=== PATIENT | female | born 1960 | race Two or more races ===

== ENCOUNTER 2017-01-18 01:44 | Inpatient (IN) | payer BC ==
[~2017-01-18] VITALS: Ht 162.6 cm; Wt 88.2 kg
--- NOTE | ~2017-01-18 | ER ---
PATIENT'S NAME: ALIA VALLES [facility] AGE: 56 Y [address] ROOM: [place] [address] LOCATION: GPCU ADMIT DATE: 01/18/2017 ER/Outpatient Report DISCHARGE DATE: FAMILY PHYSICIAN: PHYSICIAN, NO ATTENDING PHYSICIAN: ANABEL LANE TIME OF ARRIVAL: 0144. TIME SEEN: 0145. IDENTIFICATION: A 56-year-old female. CHIEF COMPLAINT: Chest pain. HISTORY OF PRESENT ILLNESS: The patient is a 56-year-old female, who initially stated she developed chest pain around 8:00 p.m., but actually she had chest pain throughout most of the afternoon. It increased in severity about 8:00 p.m. She said earlier this afternoon, she felt like it was indigestion, but it went away and then came back. She took a bath and that increased in severity around 8:00 p.m. and then again at 01:00 a.m. The patient has never had pain like this before. She does have diaphoresis and nausea associated with this. Her pain is lower substernal chest pain with no radiation. She is a little bit lightheaded and short of breath associated with this. ALLERGIES: NO KNOWN DRUG ALLERGIES. MEDICATIONS: No current medications. PAST MEDICAL HISTORY: The patient denies any medical problems. PAST SURGICAL HISTORY: No prior surgeries or hospitalizations. SOCIAL HISTORY: The patient lives here in [place]. Tobacco use, 1 pack per day. Alcohol use, denies. Drug use, denies. PATIENT'S NAME: ALIA VALLES [facility] AGE: 56 Y [address] ROOM: [place] [address] LOCATION: GPCU ADMIT DATE: 01/18/2017 ER/Outpatient Report DISCHARGE DATE: FAMILY PHYSICIAN: PHYSICIAN, NO ATTENDING PHYSICIAN: ANABEL LANE FAMILY HISTORY: Grandmother with coronary artery disease, but not premature. REVIEW OF SYSTEMS: All systems were reviewed and negative other than what is noted in the HPI. PHYSICAL EXAMINATION: VITAL SIGNS: Weight 89.8 kg. Blood pressure 248/113, pulse 92, and saturations 98%. GENERAL: A 56-year-old female, in obvious distress with 10/10 pain, was hooked up to the monitor, IV initiated, and EKG ordered. EMERGENCY DEPARTMENT COURSE: On the monitor, she did have ST elevation and a code STEMI was called. The 12- lead then subsequently did confirm this with sinus tachycardia 100 beats per minute with significant ST elevation in lead 1, aVL, and V1 to V6 with reciprocal depression inferiorly. Dr. Dyer was contacted immediately. An IV was initiated. Nitroglycerin drip was initiated. Four baby aspirins were given orally. Chest x-ray, portable, no acute process. Pending Radiology over-read. Heparin was initiated per acute coronary syndrome protocol. Chemistry panel was remarkable for a CPK of 196, CK-MB 12.1, troponin I of 0.608, proBNP 704, hemoglobin 16.9, hematocrit 43.4, platelets 318, white count 11.9, and normal differential. D-dimer of 0.42. Initially, Dr. Dyer had ordered Brilinta 180 mg p.o., but she called back to cancel this. IMPRESSION AND PLAN: STEMI. Code STEMI was called from the emergency room. Nitroglycerin drip, 4 baby aspirin, morphine, and heparin were initiated. O2 per nasal cannula, and the patient was taken to the labor economics professor in guarded condition. Thirty minutes of critical care was provided with this patient in the emergency room. MD SHYANNE DENNIS/caty /[id number] d: 01/18/17 1051 t: 01/19/17 0310, OUTPATIENT REPORT
--- NOTE | ~2017-01-18 | HP ---
PATIENT'S NAME: ALIA LEE [facility] AGE: 56 Y [address] ROOM: [facility] [place] [address] LOCATION: GPCU ADMIT DATE: 01/18/2017 History & Physical DISCHARGE DATE: FAMILY PHYSICIAN: PHYSICIAN, NO ATTENDING PHYSICIAN: ANABEL LANE DATE OF SERVICE: REASON FOR CONSULTATION: STEMI. CHIEF COMPLAINT: Chest pain. HISTORY OF PRESENTING ILLNESS: The patient is a very pleasant 56-year-old female, who has history of tobacco abuse of 1 pack per day. She reports on January 17, 2017, she started having chest pain off and on, starting in the afternoon, however, later on, at 8:00, she had more chest discomfort associated with shortness of breath; and she thought it was maybe just acid reflux and took Tums and [id number] medications, and was trying to take a shower, and different things, but her chest pain started getting progressively worse. She had severe chest pain, 10/10, for about an hour and a half before coming to the emergency room late last night at about 01:55 a.m. or so. The severe onset of chest pain really started about 8 o'clock yesterday. As soon as she came into the emergency room, she was given 4 baby aspirins. Her pain was 9/10. Her blood pressure was 248/113 and heart rate was 101. She was saturating 100% at 2 L. Prior to that, she reports all day she had what she thought was indigestion. It recurred off and on all day, but in the ER, she was in severe distress. Nitroglycerin drip was started at 5 mcg. She was given morphine. Labs were drawn. She was given heparin bolus and drip at 02:06 a.m. A code STEMI was called for severe anterolateral ST-elevation LA and catheterization lab, and I came to the emergency room on an emergent basis to take her to the cardiac micro lab analyst for possible PCI. She really does not have any other past medical history. She does not have a primary care doctor. She does not take any medications. She is a smoker and smokes about 1 pack per day. NO bleeding issues, no stroke like symptoms. NO rash. No fever or chills. ROS: All review of systems d/w pt and pertinent positives nad negatives mentioned in the HPI. PAST MEDICAL HISTORY: None. PAST SURGICAL HISTORY: in 1994. PATIENT'S NAME: ALIA LEE [facility] AGE: 56 Y [address] ROOM: [place] [address] LOCATION: [facility] ADMIT DATE: 01/18/2017 History & Physical DISCHARGE DATE: FAMILY PHYSICIAN: PHYSICIAN, NO ATTENDING PHYSICIAN: ANABEL LANE SOCIAL HISTORY: The patient smokes 1 pack per day. She is and lives with her . FAMILY HISTORY: There is family history of coronary artery disease but no sudden cardiac . MEDICATIONS: None. ALLERGIES: NONE. PHYSICAL EXAMINATION: VITAL SIGNS: Blood pressure on admission 248/113. Weight is 89.8 kg. Pulses 92, O2 saturations 98% on room air, and respirations 16. HEAD: Atraumatic normocephalic. Eyes: Normal sclerae white. No xanthelasma. SKIN: Warm and dry. Mucous membranes moist. HEART: S1 and S2. Regular rate and rhythm. No murmurs, gallops, or rubs. LUNGS: Clear to auscultation bilaterally. ABDOMEN: Soft. Bowel sounds positive. NEUROLOGIC: Grossly intact. Able to move all extremities against gravity. MUSCULOSKELETAL: Good range of motion. The radial artery 1+ appears to be a small artery on palpation. The patient is alert and oriented. She is in severe distress and has significant chest pain and is very uncomfortable. PSYCHIATRIC: Mood normal. She answers all questions appropriately. LABORATORY DATA: CBC and cardiac enzymes were drawn and they are all pending. IMAGING DATA: The chest x-ray done in the emergency room, does not show any pleural effusions or vascular congestion. Borderline cardiomegaly. EKG, normal sinus rhythm with about [address] elevations in the anterolateral leads with reciprocal changes in the inferior leads. She was in sinus tachycardia with rate in the 100s. IMPRESSION: 1. Acute anterolateral ST-elevation myocardial infarction. 2. Tobacco abuse. 3. Hypertensive emergency. PLAN: PATIENT'S NAME: ALIA LEE [facility] AGE: 56 Y [address] ROOM: [place] [address] LOCATION: GPCU ADMIT DATE: 01/18/2017 History & Physical DISCHARGE DATE: FAMILY PHYSICIAN: , DARRELL ATTENDING PHYSICIAN: ANABEL LANE 1. At this time, the patient requires emergent cardiac cath to define her coronary anatomy. She will likely have an occluded proximal LAD involving the diagonal as well given the EKG findings. She does not have any contrast allergies. She is a good candidate for DAPT. No upcoming surgeries. Risks and benefits discussed with the patient and she is agreeable to proceed with plan. 2. We will up titrate nitroglycerin drip to keep systolic blood pressure less than 140. 3. I discussed with the patient regarding the importance of cessation of tobacco products. She is agreeable with the plan. I will place her on the nicotine patch while she is here. Further plan and treatment based on cardiac cath findings. Thank you very much for allowing us to participate in the care of Ms. Lee. ANABEL LANE MD AT/modl /[id number] D: 504 T: 721 HISTORY & PHYSICAL
--- NOTE | ~2017-01-18 | ECHO ---
Transthoracic Echocardiography Report (TTE) Demographics Patient Name ALIA VALLES Date of Study 01/18/2017 JOHANNY Patient Number [id number] Visit Number [id number] Date of 1960 Room Number G6337 Gender Female Number Age 56 year(s) Referring Melchor Dyer Instrument Operator Kayce Hraley RD, Physician RVT Physician Interpreting Melchor Dyer Perioperative Assistant Physician MD Supervising Ordering Melchor Dyer MD/MLP Physician MD Nurse Stress Pail Tester Conclusions Summary Ischemic cardiomyopathy with mildly reduced LV systolic function. Entire apex, mid to distal anteroseptum and distal anterior frias are severely hypokinetic. The estimated left ventricular ejection fraction is 40-45%. Moderate concentric left ventricular hypertrophy. Diastolic assessment reveals Grade I diastolic dysfunction. Mild mitral regurgitation by color Doppler. Epicardial fat pad noted. No significant valvular abnormalities. Procedure Type of Study TTE procedure:2D Echocardiogram. Procedure Date Date: 01/18/2017 Start: 09:40 AM Study Location: Inpatient Portable Technical Quality: Adequate visualization Indications:Chest pain. Additional Indications:STEMI Appropriate Use Criteria: 9 Patient Status: Routine Rhythm: Within normal limits HR: 64 bpm BP: 128/73 mmHg Allergies - No known allergies. M-Mode/2D Measurements LV Diastolic Dimension: 3.57 cm LV Systolic Dimension: 2.5 cm LV Septum Diastolic: 1.56 cm LV PW Diastolic: 1.39 cm AO Root Dimension: 2.71 cm Cardiac Output: 2.56 l/min LA Dimension: 3.9 cm LVOT: 1.7 cm IVC Inspiration: 0.93 cm LVOT VTI: 17.6 cm RV Base: 2.68 cm LV Stroke volume: 39.93 ml RV Length: 4.72 cm TAPSE: 1.12 cm TDI-S': 11 cm/s Doppler Measurements AV Peak Velocity: 1.6 m/s MV Peak E-Wave: 0.65 m/s AV Peak Gradient: 10.24 mmHg MV Peak A-Wave: 1 m/s AV Mean Gradient: 6 mmHg MV E/A Ratio: 0.65 LVOT Peak Velocity: 0.92 m/s MV P1/2t: 64 msec PV Peak Velocity: 0.99 m/s E' Septal Velocity: 0.06 m/s PV Peak Gradient: 3.94 mmHg E' Lateral Velocity: 0.06 m/s A' Septal Velocity: 0.14 m/s MV E/E' Ratio: 13 A' Lateral Velocity: 0.13 m/s Findings Left Ventricle Moderate concentric left ventricular hypertrophy. Diastolic assessment reveals Grade I diastolic dysfunction. Right Ventricle Normal right ventricle structure and function. Left Atrium Normal left atrial size. Right Atrium Normal right atrial size. IVC measures 1.8 cm with inspiratory collapse. Mitral Valve Mild mitral regurgitation by color Doppler. Aortic Valve The aortic valve is mildly sclerotic. Tricuspid Valve The tricuspid valve is not well visualized. Pulmonic Valve Trivial pulmonic valve regurgitation by color Doppler. The pulmonic valve is not well visualized. Pericardial Effusion Epicardial fat pad noted. Miscellaneous Visualized portions of the aortic root and ascending aorta appear normal in size. Pleural Effusion No evidence of pleural effusion. Signature dtt: ANABEL LANE dtd: 01/18/17 0940 Physician Self Edit
--- NOTE | ~2017-01-18 | CATH ---
Cardiac Diagnostic + PCI Report Demographics Patient Name HAI ROJO Gender Female JOHANNY Date of 1960 Age 56 year(s) Patient Number [id number] Date of Study 01/18/2017 Visit Number [id number] Room Number G6337 [place] [id number] Ht 162.56 cm Wt 89.8 kg Referring [facility] Primary Physician Physician Manisha ROCHA Performing [facility] Secondary Physician Physician Manisha ROCHA Diagnostic [facility] Assisting Physician Physician Manisha ROCHA Interventional [facility] Physician [employer] Operations Physician Manisha ROCHA Findings and Conclusions Diagnostic Findings and Conclusion Anterolateral STEMI emergent cath, symptom onset about 4 hours ago. Prox LAD 95% lesion with thrombus with NURA II flow. Diagnostic Recommendations Recommend primary PCI for proximal LAD in setting of STEMI. Interventional Findings and Conclusion 1.Status post successful PCI of prox LAD with JOANN, 3.0/16 promus premier 2.Unable to negotiate xpress way aspiration catheter due to tortuosity, attempted several times into both lad/diag and after PTCA as well 3.No chest pain at end of procedure Interventional Recommendations DAPT x 1 year Tobacco cessation Patient will be observed overnight. Hydration and followup creatinine. Patient has been instructed to not lift anything more than 5 pounds for 1 week. Optimize LV systolic function. Aggressive risk factor management. Aggressive medical therapy for coronary artery disease. Recommend aggressive risk factor modification. Patient was transferred to PCU. Cardiac diet . Optimization of medical therapy as an outpatient. Smoking Cessation teaching and counseling done . Referral to Cardiac Rehabilitation now and at discharge . Aggressive risk factor management. Procedure Description The patient was brought to the diagnostic cardiac catheterization-EP laboratory in the fasting, non-sedated state. Informed consent was obtained in the written and verbal form after the risks and benefits were explained. The patient had no further questions and agreed to proceed. The planned puncture-incision site(s) were shaved and prepped with ChloraPrep and draped in the usual sterile manner. Conscious sedation, supplemental oxygen, and pain control medications were delivered by a registered nurse under physician guidance. Surface ECG rhythm, blood pressure measurement, and pulse oximetry were monitored throughout the procedure. Arterial access. The access site was infiltrated with lidocaine. The vessel was entered with the Seldinger technique. A sheath was advanced into the vessel and used for catheter placement. Selective left coronary angiography. A catheter was advanced into the left coronary vessel ostium under Fluoroscopic guidance. Contrast was injected by hand. Images were obtained in multiple projections. Selective right coronary angiography. A catheter was advanced into the right coronary vessel ostium under fluoroscopic guidance. Contrast was injected by hand. Images were obtained in multiple projections. Left heart catheterization. A catheter was advanced across the aortic valve to the left ventricle under fluoroscopic guidance. Resting hemodynamics were obtained. Angioplasty and Stent Placement: A guiding catheter was used to intubate the vessel. A 0.14 wire was then used to cross the lesion. A balloon catheter was placed across the lesion and inflated. The balloon catheter was then removed. A Drug Eluting Stent was placed and inflated. Post placement angiograms were performed. Arterial artery hemostasis was achieved. The patient was transferred to a regular nursing floor via cart accompanied by a nurse. The patient left the laboratory in stable condition. Diagnostic Cath Status: Emergency Interventional Cath Status: Emergency Procedure Procedure Type Diagnostic procedure:Angiography:, Coronary Angios w/C PCI procedure:Drug Eluting Coronary Stent:, LAD Indications: ECG changes and Chest pain. The procedure was explained in detail to the patient. Risks, complications and alternative treatments were reviewed. Written consent was obtained. Medications Reviewed with Patient prior to Procedure. Angiographic Findings Dominance: Right Cardiac Arteries and Lesion Findings LMCA: Lesion on LMCA: Distal subsection.10% stenosis . LAD: LAD proximal lesson 95% with thrombus. Lesion on Prox LAD: Mid subsection.95% stenosis 12 mm length reduced to 0%. Pre procedure NURA II flow was noted. Post Procedure NURA III flow was present. The guidewire cross was successful.The lesion was diagnosed as a high risk lesion.Culprit lesion. Devices used - Runthrough NS .014 x 180. Number of passes: 1. - Xpress-Way Aspiration Catheter. Number of passes: 1. - Emerge Balloon 2.5 x 15. 1 inflation(s) to a max pressure of: 12 montse. - Xpress-Way Aspiration Catheter. Number of passes: 1. - Promus Premier 3.0 x 16 Stent. 1 inflation(s) to a max pressure of: 12 montse. Lesion on 1st Diag: Proximal subsection.20% stenosis . Devices used - Runthrough NS .014 x 180. Number of passes: 1. - Xpress-Way Aspiration Catheter. Number of passes: 1. LCx: Lesion on Mid CX: Mid subsection.10% stenosis . Lesion on 1st Ob Sowmya: Mid subsection.10% stenosis . RCA: PL and PDA normal Lesion on Prox RCA: Proximal subsection.50% stenosis . Ramus: Lesion on Ramus: 10% stenosis . Coronary Tree Procedure Data Procedure Date Date: 01/18/2017Start: 02:31 AMEnd: 03:09 AM Entry Locations - Retrograde Percutaneous access was performed through the Right Radial artery (Primary location). A 6 Fr sheath was inserted. Unsuccessful closure attempt was performed using: an R band. Hemostasis was successfully obtained using Mechanical Compression. Closure Comments: R) band applied by Brayden. 13 ml of air. Procedure Medications Order and Administration + + + + + !Time !Medication !Dosage !Route ! + + + + + !01/18/2017 02:29 !Dean !4 mg !I.V. ! !AM ! ! ! ! + + + + + !01/18/2017 02:31 !Versed !1 mg !I.V. ! !AM ! ! ! ! + + + + + !01/18/2017 02:33 !Radial Verapamil !2.5 mg !I.A. ! !AM ! ! ! ! + + + + + !01/18/2017 02:35 !Nitroglycerin !50 mcg/min !I.V. drip ! !AM ! ! ! ! + + + + + !01/18/2017 02:36 !Angiomax (Bivalirudin) !67.5 mg !I.V. bolus ! !AM !(ACC_5) ! ! ! + + + + + !01/18/2017 02:37 !Angiomax (Bivalirudin) !1.75 mg/kg/hr!I.V. bolus ! !AM !(ACC_5) ! ! ! + + + + + !01/18/2017 02:37 !Heparin (ACC_3) ! !I.V. ! !AM ! ! ! ! + + + + + !01/18/2017 02:54 !Integrilin (ACC_7) !15.8 mg !I.V. bolus ! !AM ! ! ! ! + + + + + !01/18/2017 03:02 !Brilinta (Ticagrelor) !180 mg !P.O. ! !AM !(ACC_20) ! ! ! + + + + + !01/18/2017 03:06 !Hydralizine !10 mg !I.V. ! !AM ! ! ! ! + + + + + Devices Used - A5 Fr. BS JR 4 Diag. Catheterwas used for:Right coronary angiography. - A6 Fr. XBLAD 3.5 Guide Catheterwas used for:Left coronary angiography. Contrast Material - Isovue 94187 ml Fluoroscopy Time: Diagnostic: 9:12 minutes. Total: 9:12 minutes. Fluoroscopy Dose: Diagnostic: 1384 mGy. Total: 1384 mGy. Estimated Blood Loss: 10 ml. Additional [facility] PCI Information PCI Indication:Immediate PCI for STEMI. Medical History Performed Procedures and Imaging Results - No ACC stress or imaging studies were performed. Allergies - No known allergies. Risk Factors The patient risk factors include:family history of premature CAD and Current/Recent(w/in 1 year) tobacco use. Admission Data Admission Date: 01/18/2017 Admission Time: 01:59 AM Admit Source: Emergency department Insurance Payors: Private health insurance. Admission Medications + +------+-----+---------+---------+ + + !Medication !Dosage!Times!Last !Last !Administered !Comments ! ! ! !Per !Delivery !Delivery ! ! ! ! ! !Day !Date !Time ! ! ! + +------+-----+---------+---------+ + + !Aspirin (any) ! ! ! ! !Yes ! ! + +------+-----+---------+---------+ + + !Unfractionated ! ! ! ! !Yes ! ! !Heparin (any) ! ! ! ! ! ! ! + +------+-----+---------+---------+ + + !Nitrates (iv or! ! ! ! !Yes ! ! !buccal) ! ! ! ! ! ! ! + +------+-----+---------+---------+ + + Clinical Evaluation Leading to Procedure - The patient's CAD presentation was assessed as: STEMI.The symptom onset was first noted on 01/17/2017 09:00 PM(time was estimated). Hemodynamics Condition: Rest Estimated: Heart Rate: 71 bpm Pressures (mmHg) +-----+ + !Site !Pressure ! +-----+ + !LV !205/3 ,15 ! +-----+ + !LV !/ ,21 ! +-----+ + !AO !194/113 (148) ! +-----+ + !LV !202/1 ,20 ! +-----+ + !AO !180/107 (139) ! +-----+ + Valve Gradients and Areas + +---------+---------+---------+ +---------+ + !Valve !Peak !Mean !Area !Index !Flow !Source ! + +---------+---------+---------+ +---------+ + !Aortic !10 !9 ! ! ! ! ! + +---------+---------+---------+ +---------+ + !Aortic !10 !9 ! ! ! ! ! + +---------+---------+---------+ +---------+ + Shunts Oxygen Values O2 Capacity 229.84 Discharge Data Discharge Date: 01/19/2017 Hospital Status: Inpatient Signatures dtt: MANISHA LANE dtd: 01/18/17 0231 Physician Self Edit
[2017-01-18 02:12] LABS: BASOPHIL # 0.1 K/uL (0.0-0.2); BASOPHIL % 0.5 %; EOSINOPHIL # 0.1 K/uL (0.0-0.5); EOSINOPHIL % 0.5 %; HEMOGLOBIN 16.9 g/dL (10.0-15.0); IMMATURE GRANULOCYTE # 0.1 K/uL (0.0-0.3); IMMATURE GRANULOCYTE % 0.5 %; LYMPHOCYTE % 33.4 %; MCH 29.7 pg (27.0-34.0); MCHC 34.5 gm/dL (32.0-36.5); MCV 86.1 fl (83.0-98.0); MONOCYTE # 0.5 K/uL (0.0-1.0); MONOCYTE % 4.2 %; MPV 9.4 fl (9.4-12.4); NEUTROPHIL # (ANC) 7.2 K/uL (1.8-7.8); NEUTROPHIL % 60.9 %; NRBC % 0 /100WBC (0-0.00); PLATELET COUNT 318 K/uL (150-450); RBC 5.69 M/uL (3.50-5.50); RDW-CV 12.3 % (11.9-14.6); WBC 11.9 K/uL (4.0-11.0)
[2017-01-18 02:22] LABS: INR - (THERAPEUTIC) 0.96 (0.92-1.07); PROTIME 10.1 SECONDS (9.8-11.4); PTT 26 SECONDS (25-32)
[2017-01-18 02:32] LABS: ALBUMIN 4.2 gm/dL (3.5-5.0); ALK PHOS 105 IU/L (33-138); ALT 57 IU/L (12-78); BLOOD UREA NITROGEN 7 mg/dL (6-24); CALCIUM 9.8 mg/dL (8.5-10.5); CHLORIDE 108 mMol/L (96-110); CO2 19 mMol/L (22-32); CPK 196 IU/L (21-215); CREATININE 0.9 mg/dL (0.5-1.1); ESTIMATED GFR (MDRD EQUATION) > 60; SODIUM 138 mMol/L (135-145); TOTAL BILIRUBIN 0.4 mg/dL (0.0-1.5); TOTAL PROTEIN 8.3 g/dL (6.0-8.4)
[2017-01-18 02:33] LABS: ANION GAP 15.1 (10.0-19.0); AST 34 IU/L (10-40); POTASSIUM 4.1 mMol/L (3.7-5.1)
[2017-01-18 05:32] LABS: ALBUMIN 3.5 gm/dL (3.5-5.0); ALK PHOS 90 IU/L (33-138); ALT 47 IU/L (12-78); ANION GAP 10.8 (10.0-19.0); AST 39 IU/L (10-40); BLOOD UREA NITROGEN 6 mg/dL (6-24); CALCIUM 9.1 mg/dL (8.5-10.5); CHLORIDE 109 mMol/L (96-110); CO2 23 mMol/L (22-32); CREATININE 0.8 mg/dL (0.5-1.1); ESTIMATED GFR (MDRD EQUATION) > 60; POTASSIUM 3.8 mMol/L (3.7-5.1); SODIUM 139 mMol/L (135-145); TOTAL BILIRUBIN 0.4 mg/dL (0.0-1.5)
[2017-01-19 04:06] LABS: BASOPHIL # 0.1 K/uL (0.0-0.2); BASOPHIL % 0.5 %; EOSINOPHIL # 0.1 K/uL (0.0-0.5); EOSINOPHIL % 0.8 %; HEMATOCRIT 41.2 % (33.0-46.0); HEMOGLOBIN 14.7 g/dL (10.0-15.0); IMMATURE GRANULOCYTE % 0.4 %; LYMPHOCYTE % 41.5 %; MCH 30.9 pg (27.0-34.0); MCHC 35.7 gm/dL (32.0-36.5); MCV 86.6 fl (83.0-98.0); MONOCYTE # 0.6 K/uL (0.0-1.0); MONOCYTE % 6.2 %; MPV 9.6 fl (9.4-12.4); NEUTROPHIL # (ANC) 4.9 K/uL (1.8-7.8); NEUTROPHIL % 50.6 %; NRBC % 0 /100WBC (0-0.00); RBC 4.76 M/uL (3.50-5.50); RDW-CV 12.3 % (11.9-14.6); WBC 9.7 K/uL (4.0-11.0)
[2017-01-19 04:07] LABS: PLATELET COUNT 241 K/uL (150-450)
[2017-01-19 04:24] LABS: ANION GAP 11.9 (10.0-19.0); BLOOD UREA NITROGEN 7 mg/dL (6-24); CALCIUM 8.6 mg/dL (8.5-10.5); CHLORIDE 110 mMol/L (96-110); CO2 23 mMol/L (22-32); CREATININE 0.7 mg/dL (0.5-1.1); ESTIMATED GFR (MDRD EQUATION) > 60; POTASSIUM 3.9 mMol/L (3.7-5.1); SODIUM 141 mMol/L (135-145)
[2017-01-19] MEDS ORDERED: NORVASC5 MG PO (09:55)
[2017-01-19] MEDS ORDERED: ASPIRIN EC81 MG PO (09:55)
[2017-01-19] MEDS ORDERED: LIPITOR80 MG PO (09:57)
[2017-01-19] MEDS ORDERED: VASOTEC2.5 MG PO (09:59)
[2017-01-19] MEDS ORDERED: LOPRESSOR25 MG PO (10:00)
[2017-01-19] MEDS ORDERED: NICODERM / HABIT7 MG TOP (10:01)
[2017-01-19] MEDS ORDERED: BRILINTA90 MG PO (10:02)
== END 2017-01-19 10:55 | disposition disaster alternative care site (69) | DRG 247 ==
LOC: GMED 01:44 → GPCU 01:59
PROVIDERS: Family Medicine; ADMIT Internal Medicine Interventional Cardiology
PROC: 4A023N7 Measurement of Cardiac Sampling and Pressure, Left Heart, Percutaneous Approach (ICD-10-PCS; principal; 2017-01-18)
PROC: B2111ZZ Fluoroscopy of Multiple Coronary Arteries using Low Osmolar Contrast (ICD-10-PCS; principal; 2017-01-18)
PROC: 027034Z Dilation of Coronary Artery, One Artery with Drug-eluting Intraluminal Device, Percutaneous Approach (ICD-10-PCS; principal; 2017-01-18)
PROC: B246ZZZ Ultrasonography of Right and Left Heart (ICD-10-PCS; principal; 2017-01-18)
DX: I21.09 ST elevation (STEMI) myocardial infarction involving other coronary artery of anterior wall (principal); I10 Essential (primary) hypertension; I16.1 Hypertensive emergency; Z72.0 Tobacco use
CPT/HCPCS: C1725; C1757; C1769; C1874; C1887; C9606; J0360; J0461; J0583; J1327; J1644; J2250; J2270; J2405